=== PATIENT | female | born 1990 | race American Indian/Alaskan Native ===

== ENCOUNTER 2018-05-31 16:05 | Emergency (ER) | payer SELFPAY ==
[2018-05-31] MEDS ORDERED: NORCO 5/325 PO ONE (17:37)
[2018-05-31] MEDS ORDERED: MOTRIN PO ONE (17:37)
--- NOTE | 2018-05-31 18:00 | Emergency Department Report ---
Blank Doc - Documentation Documentation: Vision is a 27-year-old female previously healthy who is complaining of left lower extremity swelling. Patient states swelling is progressively worsened over the last week. Patient denies any fevers chills or recent travel chest pain shortness of breath or fever. Patient states that the pain is mostly in her foot and ankle but does radiate posteriorly up to the level of the knee. Patient does have pain when she dorsiflexes her foot. Patient states that approximately 3 weeks ago she did go on 3 mile walk does not show this caused some of the discomfort. On focused physical exam patient does have swelling to the left foot ankle and posterior calf. There is no pitting edema present. There is no warmth or erythema present. Patient has arrived and been seen after the time that [employer] is in the hospital therefore an alternative treatment plan is to check a d-dimer. If the patient's d-dimer is negative and rules out DVT. The patient does have a positive d-dimer and the patient will be instructed to return tomorrow for ultrasound will be given a dose Lovenox before leaving. Patient also have x-rays done to rule out occult fracture.
--- NOTE | 2018-05-31 18:49 | XRay Report ---
FINAL REPORT EXAM: XR ANKLE 3+V LT HISTORY: swelling COMPARISON: None available. FINDINGS: Three views of the left ankle obtained. Bony structures are intact. Joint spaces are preserved. No acute fracture dislocation. IMPRESSION: No acute bony abnormality.
--- NOTE | 2018-05-31 19:15 | XRay Report ---
FINAL REPORT EXAM: XR TIBIA FIBULA 2V LT HISTORY: swelling COMPARISON: Left ankle from the same date. FINDINGS: Two views of the left tibia and fibula obtained. Bony structures are intact. Joint spaces are preserved. No acute fracture dislocation. IMPRESSION: No acute bony abnormality.
[2018-05-31] MEDS ORDERED: LOVENOX SUB-Q ONE (19:26)
--- NOTE | 2018-05-31 19:36 | Emergency Department Report ---
<MIRTA GUTIERREZ - Last Filed: 05/31/18 20:17> ED Lower Extremity HPI - General Chief Complaint: Extremity Injury, Lower Stated Complaint: FOOT/LEG PAIN SWOLLEN Time Seen by Provider: 05/31/18 17:29 Source: patient Mode of arrival: Ambulatory Limitations: No Limitations - History of Present Illness Initial Comments: Vision is a 27-year-old female previously healthy who is complaining of left lower extremity swelling. Patient states swelling is progressively worsened over the last week. Patient denies any fevers chills or recent travel chest pain shortness of breath or fever. Patient states that the pain is mostly in her foot and ankle but does radiate posteriorly up to the level of the knee. Patient does have pain when she dorsiflexes her foot. Patient states that approximately 3 weeks ago she did go on 3 mile walk does not show this caused some of the discomfort. On focused physical exam patient does have swelling to the left foot ankle and posterior calf. There is no pitting edema present. There is no warmth or erythema present. Patient has arrived and been seen after the time that [employer] is in the hospital therefore an alternative treatment plan is to check a d-dimer. If the patient's d-dimer is negative and rules out DVT. The patient does have a positive d-dimer and the patient will be instructed to return tomorrow for ultrasound will be given a dose Lovenox before leaving. Patient also have x-rays done to rule out occult fracture. Complaint: leg injury Onset/Timin -: week(s) Injury: Leg: Left (swelling pain radiating for foot to groin with calf tenderness ) Type of Injury: unknown Place: home Severity: moderate Severity scale (0 -10): 4 Improves With: nothing Worsens With: movement, palpation Associated Symptoms: swelling, able to partially bear weight - Related Data Previous Rx's Medication Instructions Recorded Last Taken Type traMADol [Ultram] 50 mg PO Q6HR PRN 3 Days #12 tablet 05/31/18 Unknown Rx Allergies Allergy/AdvReac Type Severity Reaction Status Date / Time No Known Allergies Allergy Unverified 05/31/18 16:10 ED Review of Systems ROS: Stated complaint: FOOT/LEG PAIN SWOLLEN Other details as noted in HPI Constitutional: denies: chills, fever Eyes: denies: eye pain, eye discharge, vision change ENT: denies: ear pain, throat pain Respiratory: denies: cough, shortness of breath, wheezing Cardiovascular: denies: chest pain, palpitations Endocrine: no symptoms reported Gastrointestinal: denies: abdominal pain, nausea, diarrhea Genitourinary: denies: urgency, dysuria, discharge Musculoskeletal: as per HPI, joint swelling, myalgia Skin: denies: rash, lesions Neurological: as per HPI Psychiatric: denies: anxiety, depression Hematological/Lymphatic: denies: easy bleeding, easy bruising ED Past Medical Hx - Past Medical History Previous Medical History?: No - Surgical History Past Surgical History?: No - Social History Smoking Status: Never Smoker Substance Use Type: None - Medications Home Medications: Home Medications Medication Instructions Recorded Confirmed Last Taken Type traMADol [Ultram] 50 mg PO Q6HR PRN 3 Days #12 tablet 05/31/18 Unknown Rx ED Physical Exam - General Limitations: No Limitations General appearance: alert, in no apparent distress - Head Head exam: Present: atraumatic, normocephalic - Eye Eye exam: Present: normal appearance - ENT ENT exam: Present: mucous membranes moist - Neck Neck exam: Present: normal inspection - Respiratory Respiratory exam: Present: normal lung sounds bilaterally. Absent: respiratory distress, wheezes, stridor, chest wall tenderness - Cardiovascular Cardiovascular Exam: Present: regular rate, normal rhythm, normal heart sounds. Absent: systolic murmur, diastolic murmur, rubs, gallop - GI/Abdominal GI/Abdominal exam: Present: soft, normal bowel sounds - Rectal Rectal exam: Present: deferred - Extremities Exam Extremities exam: Present: tenderness, normal capillary refill, pedal edema, calf tenderness - Expanded Lower Extremity Exam Left Hip exam: Present: normal inspection, full ROM Upper Leg exam: Present: normal inspection, full ROM Knee exam: Present: tenderness, swelling, full knee extension. Absent: abrasion , laceration, ecchymosis, deformity, crepidus, dislocation, erythema, effusion, pain w/ pronation/supination, posterior draw sign, pain/laxity with valgus, pain /laxity with varus Lower Leg exam: Present: tenderness, swelling, Eugenie's sign. Absent: abrasion, laceration, ecchymosis, deformity, crepidus, dislocation, erythema, palpable cord Ankle exam: Present: normal inspection, full ROM, swelling. Absent: tenderness , abrasion, laceration, ecchymosis, deformity, crepidus, dislocation, erythema, anterior draw sign Foot/Toe exam: Present: tenderness, swelling. Absent: abrasion, laceration, ecchymosis, deformity, crepidus, dislocation, erythema, amputation, puncture wound, foreign body, calcaneal tenderness, tenderness at base of 5th metatarsal , nail avulsion, subungual hematoma Neuro vascular tendon exam: Absent: pulse deficit, abnormal cap refill, motor deficit, sensory deficit, tendon deficit, extremity cold to touch, pallor, abnormal 2-point discrimination, decreased fine/light touch, foot drop Gait: Positive: observed and limited by pain - Back Exam Back exam: Present: normal inspection - Neurological Exam Neurological exam: Present: alert, oriented X3, CN II-XII intact, reflexes normal. Absent: motor sensory deficit - Psychiatric Psychiatric exam: Present: normal affect, normal mood - Skin Skin exam: Present: warm, dry, intact, normal color. Absent: rash ED Course Vital Signs 05/31/18 05/31/18 16:10 20:17 Temperature 98.2 F Pulse Rate 87 88 Respiratory 16 16 Rate Blood Pressure 122/77 Blood Pressure 120/78 [Right] O2 Sat by Pulse 97 98 Oximetry ED Lower Extremity MDM - Lab Data Laboratory Tests 05/31/18 17:46 D-Dimer 748.88 H - Radiology Data Radiology results: report reviewed, image reviewed no fracture no soft tissue abnormality - Medical Decision Making Patient's a 27-year-old Malag[place] female denies previous medical history presents for a left lower leg pain and swelling 1 week noted pain and swelling from left calf Foot nonpitting pain reproduced with dorsiflexion mild calf tenderness positive Homans distal pulses intact [employer] less than 3 bilateral patient remains ambulatory with mild pain d-dimer 788 x-ray tib-fib ankle normal no fracture no soft tissue abnormality plan patient given Lovenox 1 mg a kilogram subcutaneous 1 and ED patient will return in a.m. 7 AM for CV ultrasound Doppler left lower extremity discuss Lovenox discussed DVT prophylaxis discussed Doppler and follow-up treatment plan patient given Lovenox education patient returned demonstration and understanding of same patient for DC'd home in stable condition at this time will return in a.m. for ultrasound to rule out DVT there is no shortness of breath no chest pain no ecchymosis noted the bruising patient is [employer] Son Critical care attestation.: If time is entered above; I have spent that time in minutes in the direct care of this critically ill patient, excluding procedure time. ED Disposition Clinical Impression: Edema Qualifiers: Edema type: localized Qualified Code(s): R60.0 - Localized edema Disposition: TO HOME OR SELFCARE Is pt being admited?: No Does the pt Need Aspirin: No Condition: Stable Instructions: Enoxaparin (Injection), Leg Edema (ED) Additional Instructions: Return to CV US Doppler Left Leg in am report to radiology Ultrasound deparment in am. Prescriptions: traMADol [Ultram] 50 mg PO Q6HR PRN 3 Days #12 tablet PRN Reason: Pain Referrals: PRIMARY CARE, [Primary Care Provider] - 3-5 Days GIOVANNY GUERRERO DO [Staff Physician] - 3-5 Days Forms: Work/School Release Form(ED) Time of Disposition: 19:48 <MAGDALENE LEMUS - Last Filed: 06/01/18 10:57> ED Lower Extremity MDM - Medical Decision Making Patient did return this morning for ultrasound of the lower extremity. There is negative for DVT. Patient was referred to vascular surgery regarding the patient's unilateral leg swelling. ED Disposition Is pt being admited?: No Does the pt Need Aspirin: No
[2018-05-31 20:18] VITALS: BP 120/78
== END 2018-05-31 20:18 | disposition home or self-care (01) ==
LOC: ED 16:05
DX: R60.0 Localized edema (principal)
CPT/HCPCS: 36415; 73590; 73610; 85379; 96372; 99284; J1650

== ENCOUNTER 2018-06-01 08:18 | Emergency (ER) | payer SELFPAY ==
[2018-06-01 08:30] VITALS: BP 117/67
== END 2018-06-01 09:14 | disposition left against medical advice (07) ==
LOC: ED 08:18
DX: M79.672 Pain in left foot (principal); Z53.21 Procedure and treatment not carried out due to patient leaving prior to being seen by health care provider

== ENCOUNTER 2020-04-06 14:56 | Emergency (ER) | payer SELFPAY ==
--- NOTE | 2020-04-06 15:15 | Event Note ---
ED Screening Note Date of service: 04/06/20 Time: 15:11 ED Screening Note: This is a 29-year-old female with no prior medical history who presents the ED complaining left-sided lower abdominal pain radiating to the back that began at 11 AM today. She describes pain as constant and worsening cramp type pain she denies vaginal bleed, dysuria, fever Patient crying and is still complaining of pain This initial assessment/diagnostic orders/clinical plan/treatment(s) is/are subject to change based on patients health status, clinical progression and re- assessment by fellow clinical providers in the ED. Further treatment and workup at subsequent clinical providers discretion. Patient/guardian urged not to elope from the ED as their condition may be serious if not clinically assessed and managed. Initial orders include: labs,ua
[2020-04-06 15:50] LABS: Basophils # (Auto) 0.1 K/mm3 (0.0-0.1); Basophils % (Auto) 1.8 % (0.0-1.8); Eosinophils % (Auto) 0.2 % (0.0-4.3); Hematocrit 39.9 % (30.3-42.9); Hemoglobin 13.2 gm/dl (10.1-14.3); Lymphocytes # (Auto) 0.8 K/mm3 (1.2-5.4); Lymphocytes % (Auto) 12.7 % (13.4-35.0); Mean Corpuscular HGB Conc 33 % (30-34); Mean Corpuscular Volume 84 fl (79-97); Monocytes # (Auto) 0.3 K/mm3 (0.0-0.8); Monocytes % (Auto) 4.8 % (0.0-7.3); Platelet Count 260 K/mm3 (140-440); Red Blood Count 4.77 M/mm3 (3.65-5.03); Red Cell Distribution Width 14.3 % (13.2-15.2)
[2020-04-06 16:10] LABS: Alanine Aminotransferase 12 units/L (7-56); Albumin 4.5 g/dL (3.9-5); BUN/Creatinine Ratio 10; Blood Urea Nitrogen 8 mg/dL (7-17); Calcium 9.6 mg/dL (8.4-10.2); Hemolysis Index 11
[2020-04-06] MEDS ORDERED: MORPHINE 4 MG/1 ML INJ IV ONE (19:28)
[2020-04-06] MEDS ORDERED: SODIUM CHLORIDE 0.9% 1000 ML 1,000 ML IV ONE (19:28)
[2020-04-06] MEDS ORDERED: ONDANSETRON 4 MG/2 ML INJ IV ONE (19:28)
[2020-04-06 19:49] LABS: Bacteria,Urine 1+ /HPF (Negative); Bilirubin,Urine NEG (Negative); Blood,Urine NEG (Negative); Color,Urine Yellow (Yellow); Mucus,Urine FEW /HPF; Protein,Urine <15 mg/dL mg/dL (Negative); Urobilinogen,Urine < 2.0 mg/dL (<2.0); WBC,Urine < 1.0 /HPF (0.0-6.0)
--- NOTE | 2020-04-06 20:36 | Cat Scan Report ---
CT ABDOMEN AND PELVIS WITH IV CONTRAST INDICATION: Left sided abdominal pain. COMPARISON: None available. TECHNIQUE: All CT scans at this facility use dose modulation, automated exposure control, iterative reconstructi on or weight based dosing, when appropriate, to reduce radiation dose to as low as reasonably achieva ble. FINDINGS: Lung Bases: No significant abnormality. Skeletal System: No acute abnormality. ABDOMEN: Liver: No significant abnormality. Gallbladder: No significant abnormality. Bile Ducts: No significant abnormality. Pancreas: No significant abnormality. Spleen: No significant abnormality. Adrenals: No significant abnormality. Right Kidney: No significant abnormality. Left Kidney: No significant abnormality. Upper GI tract: No significant abnormality. Lymph Nodes: No significant adenopathy. Aorta: No significant abnormality. Additional Findings: No significant abnormality. PELVIS: Colon: No acute abnormality. Urinary Bladder and Distal Ureters: No significant abnormality. Appendix: No significant abnormality. Lymph Nodes: No significant adenopathy. Additional Findings: The uterus is enlarged. A large heterogeneous lesion measuring approximately 14 cm displacing the endometrium toward the left. This is most likely a very large fibroid or multiple f ibroids. There is a complex left ovarian lesion measuring 4.1 cm. This appears to be cystic. There is rounded enhancement within it (series 2 image 104). Right ovarian cyst is noted. IMPRESSION: 1. No acute process in the abdomen or pelvis. 2. The uterus is significantly enlarged. This appears to be due to a large 14 cm fibroid. This could also be due to multiple fibroids. 3. 4.1 cm left ovarian cystic lesion. This could be a hemorrhagic cyst. There is no free fluid. Signer Name: Jin Araujo MD Signed: 04/06/2020 8:31 PM Workstation Name: [id number]
--- NOTE | 2020-04-06 21:50 | Emergency Department Report ---
ED Abdominal Pain HPI - General Chief Complaint: Abdominal Pain Stated Complaint: ABD PAIN Source: patient Mode of arrival: Ambulatory Limitations: No Limitations - History of Present Illness Initial Comments: Patient is a nulliparous 29-year-old -Y[place]i female with no past medical history who presents to the ED with complaint of acute onset persistent severe left flank pain that radiates to the left lower quadrant area with intractable nausea and vomiting for the last 8 hours. Patient states that the pain has especially gotten worse in the last 6 hours such that she has not been able to sit still or lay down because of severe pain. Patient denies vaginal bleeding, vaginal discharge, dysuria, urinary frequency and urgency, hematuria, diarrhea, dizziness, syncope, fever, chills, cough, lower back pain, change in vision, chest pain, shortness of breath or sore throat. MD Complaint: abdominal pain (left flank pain, LLQ pain; nausea and vomiting), flank pain (left) -: Sudden, hour(s) (8) Location: LLQ, L flank Radiation: LLQ, L flank Migration to: no migration Severity: severe Severity scale (0 -10): 8 Quality: cramping, aching, sharp Consistency: constant Improves With: nothing Worsens With: nothing Associated Symptoms: denies other symptoms, nausea, vomiting, anorexia. denies: diarrhea, fever, chills, constipation, dysuria, hematemesis, hematochezia, melena, syncope - Related Data LMP Date: 03/30/20 Previous Rx's Medication Instructions Recorded Last Taken Type traMADoL [Ultram] 50 mg PO Q6HR PRN 3 Days #12 tablet 05/31/18 Unknown Rx Ketorolac [Toradol] 10 mg PO Q8H PRN #20 tablet 04/06/20 Unknown Rx Ondansetron [Zofran Odt] 4 mg PO Q6HR PRN #20 tab.rapdis 04/06/20 Unknown Rx traMADoL [Ultram] 50 mg PO Q6HR PRN #12 tablet 04/06/20 Unknown Rx Allergies Allergy/AdvReac Type Severity Reaction Status Date / Time No Known Allergies Allergy Unverified 05/31/18 16:10 ED Review of Systems ROS: Stated complaint: ABD PAIN Other details as noted in HPI Constitutional: denies: chills, fever Eyes: denies: eye pain, eye discharge, vision change ENT: denies: ear pain, throat pain Respiratory: denies: cough, shortness of breath, wheezing Cardiovascular: denies: chest pain, palpitations Endocrine: no symptoms reported Gastrointestinal: abdominal pain, nausea, vomiting. denies: diarrhea Genitourinary: denies: urgency, dysuria, discharge Musculoskeletal: denies: back pain, joint swelling, arthralgia Skin: denies: rash, lesions Neurological: denies: headache, weakness, paresthesias Psychiatric: denies: anxiety, depression Hematological/Lymphatic: denies: easy bleeding, easy bruising ED Past Medical Hx - Past Medical History Previous Medical History?: No - Surgical History Past Surgical History?: No - Social History Smoking Status: Never Smoker Substance Use Type: None - Medications Home Medications: Home Medications Medication Instructions Recorded Confirmed Last Taken Type traMADoL [Ultram] 50 mg PO Q6HR PRN 3 Days #12 tablet 05/31/18 Unknown Rx Ketorolac [Toradol] 10 mg PO Q8H PRN #20 tablet 04/06/20 Unknown Rx Ondansetron [Zofran Odt] 4 mg PO Q6HR PRN #20 tab.rapdis 04/06/20 Unknown Rx traMADoL [Ultram] 50 mg PO Q6HR PRN #12 tablet 04/06/20 Unknown Rx ED Physical Exam - General Limitations: No Limitations General appearance: alert, in no apparent distress - Head Head exam: Present: atraumatic, normocephalic, normal inspection - Eye Eye exam: Present: normal appearance, PERRL, EOMI Pupils: Present: normal accommodation - ENT ENT exam: Present: normal exam, normal orophraynx, mucous membranes moist, TM's normal bilaterally, normal external ear exam - Neck Neck exam: Present: normal inspection, full ROM - Respiratory Respiratory exam: Present: normal lung sounds bilaterally. Absent: respiratory distress, wheezes, rhonchi, stridor, chest wall tenderness, accessory muscle use, decreased breath sounds - Cardiovascular Cardiovascular Exam: Present: normal rhythm, tachycardia, normal heart sounds. Absent: systolic murmur, diastolic murmur, rubs, gallop - GI/Abdominal GI/Abdominal exam: Present: soft, tenderness (Palpable severe left lower quadrant and left flank tenderness with guarding), guarding, normal bowel sounds. Absent: rebound, rigid, hyperactive bowel sounds, hypoactive bowel sounds, organomegaly - Extremities Exam Extremities exam: Present: normal inspection, full ROM, normal capillary refill - Back Exam Back exam: Present: normal inspection, full ROM. Absent: tenderness, CVA tenderness (R), CVA tenderness (L), muscle spasm, paraspinal tenderness, vertebral tenderness - Neurological Exam Neurological exam: Present: alert, oriented X3, CN II-XII intact, normal gait, reflexes normal - Psychiatric Psychiatric exam: Present: normal affect, normal mood - Skin Skin exam: Present: warm, dry, intact, normal color. Absent: rash ED Course Vital Signs 04/06/20 14:58 Temperature 98.9 F Pulse Rate 104 H Respiratory 20 Rate Blood Pressure 143/94 O2 Sat by Pulse 96 Oximetry ED Medical Decision Making - Lab Data Result diagrams: 04/06/20 15:19 04/06/20 15:19 - Radiology Data Radiology results: report reviewed, image reviewed Findings [facility] [address] [place] [address] Cat Scan Report Signed Patient: MATTHIAS HELLER MR#: [id number] : 1990 Acct:[id number] Age/Sex: 29 / F ADM Date: 04/06/20 Loc: ED Attending Dr: Ordering Physician: NIEVES GUTIERREZ Date of Service: 04/06/20 Procedure(s): CT abdomen pelvis w con Accession Number(s): [id number] cc: NIEVES GUTIERREZ CT ABDOMEN AND PELVIS WITH IV CONTRAST INDICATION: Left sided abdominal pain. COMPARISON: None available. TECHNIQUE: All CT scans at this facility use dose modulation, automated exposure control, iterative reconstruction or weight based dosing, when appropriate, to reduce radiation dose to as low as reasonably achievable. FINDINGS: Lung Bases: No significant abnormality. Skeletal System: No acute abnormality. ABDOMEN: Liver: No significant abnormality. Gallbladder: No significant abnormality. Bile Ducts: No significant abnormality. Pancreas: No significant abnormality. Spleen: No significant abnormality. Adrenals: No significant abnormality. Right Kidney: No significant abnormality. Left Kidney: No significant abnormality. Upper GI tract: No significant abnormality. Lymph Nodes: No significant adenopathy. Aorta: No significant abnormality. Additional Findings: No significant abnormality. PELVIS: Colon: No acute abnormality. Urinary Bladder and Distal Ureters: No significant abnormality. Appendix: No significant abnormality. Lymph Nodes: No significant adenopathy. Additional Findings: The uterus is enlarged. A large heterogeneous lesion measuring approximately 14 cm displacing the endometrium toward the left. This is most likely a very large fibroid or multiple fibroids. There is a complex left ovarian lesion measuring 4.1 cm. This appears to be cystic. There is rounded enhancement within it (series 2 image 104). Right ovarian cyst is noted. IMPRESSION: 1. No acute process in the abdomen or pelvis. 2. The uterus is significantly enlarged. This appears to be due to a large 14 cm fibroid. This could also be due to multiple fibroids. 3. 4.1 cm left ovarian cystic lesion. This could be a hemorrhagic cyst. There is no free fluid. Signer Name: Jin Araujo MD Signed: 04/06/2020 8:31 PM Workstation Name: [id number] Transcribed By: JOSH Dictated By: Jin Araujo MD Electronically Authenticated By: Jin Araujo MD Signed Date/Time: 04/06/202030 DD/ 26 TD/TT: - Medical Decision Making This is a nulliparous 29-year-old -Y[place]i female with no past medical history who presents to the ED with complaint of acute onset persistent severe left flank pain that radiates to the left lower quadrant area with intractable nausea and vomiting for the last 8 hours. Patient states that the pain has especially gotten worse in the last 6 hours such that she has not been able to sit still or lay down because of severe pain. In the ED, patient is alert and oriented x3 and is not in distress but appears to be in significant pain, patient crying on physical exam. Patient is however tachycardic and afebrile in triage. Lab test results were reviewed and are all nonactionable. Patient was treated in the ED for pain and also for nausea and vomiting. The abdomen pelvis CT scan with contrast shows no acute process in the abdomen or pelvis except the uterus which is significantly enlarged. This appears to be due to a large 14 cm fibroid. This could also be due to multiple fibroids. It also shows a 4.1 cm left ovarian cystic lesion. This could be a hemorrhagic cyst. There is no free fluid. On reevaluation, patient's pain is resolved and patient has not had any nausea or vomiting after being treated with antiemetics. Patient is ambulatory in the ED. Patient was discharged home on pain medications and antiemetics and was advised to follow-up with [employer] physician in 5 to 7 days for reevaluation. Patient was advised to return to the ED immediately if symptoms get worse. - Differential Diagnosis Kidney stones; Colitis; Appendicitis; Ovarian cyst; ; Fibroids Critical care attestation.: If time is entered above; I have spent that time in minutes in the direct care of this critically ill patient, excluding procedure time. ED Disposition Clinical Impression: Acute abdominal pain in left lower quadrant, Nausea and vomiting in adult, Cyst of left ovary Uterine fibroid Qualifiers: Uterine leiomyoma location: unspecified location Qualified Code(s): D25.9 - Leiomyoma of uterus, unspecified Disposition: TO HOME OR SELFCARE Is pt being admited?: No Does the pt Need Aspirin: No Condition: Stable Instructions: Abdominal Pain (ED), Ovarian Cyst (ED), Uterine Fibroids (ED), Acute Nausea and Vomiting (ED) Additional Instructions: Take medication with food, drink plenty of fluids and follow-up with your [employer] physician in 5 to 7 days for reevaluation. Return to the ED immediately if symptoms get worse. Prescriptions: Ketorolac [Toradol] 10 mg PO Q8H PRN #20 tablet PRN Reason: Pain traMADoL [Ultram] 50 mg PO Q6HR PRN #12 tablet PRN Reason: Pain Ondansetron [Zofran Odt] 4 mg PO Q6HR PRN #20 tab.rapdis PRN Reason: Nausea Referrals: RAMÓN ABDALLA MD [Staff Physician] - 3-5 Days [facility] [Provider Group] - 3-5 Days Time of Disposition: 21:55 Print Language: CITIZEN OF [place]
[2020-04-06 22:17] VITALS: BP 130/82
== END 2020-04-06 22:16 | disposition home or self-care (01) ==
LOC: ED 14:56
DX: D25.9 Leiomyoma of uterus, unspecified (principal); R11.2 Nausea with vomiting, unspecified
CPT/HCPCS: 36415; 74177; 80053; 81001; 83690; 84703; 85025; 96361; 96374; 96375; 99284; J2270; J2405; J7030; Q9967